=== PATIENT | male | born 1940 | race Caucasian/White ===

== ENCOUNTER → 2016-09-08 | Day surgery (SDC) | payer OTHER ==
[~2016-09-08] VITALS: Ht 167.6 cm; Wt 59.8 kg
[~2016-09-08] MED LIST: BACL10TA PO; BUPIVACAINE/EPINEPHRINE 0.25% PF 30 ML VIAL INFIL ONE; CALC667T PO; DO NOT ADM ANY ANTICOAGULANT DRUGS XX PRN; HEPARIN SODIUM - SQ 10,000 UNITS/ML VIAL OTHER ONE; INSULIN HUMAN REGULAR 1,000 UNITS/10 ML VIAL SQ PRN; JANT2TAB PO; LACTATED RINGER'S 1000 ML IV SCH; METO25TA6 PO; METOPROLOL TARTRATE 25 MG TAB PO PRN; ONDANSETRON HCL 4 MG/2 ML VIAL IV PUSH ONE; PRED20 PO; PROPOFOL 200 MG/20 ML AMP IV ONE; ROPIVACAINE 0.5% PF INJ 30 ML VIAL NB ONE; SODI650T PO; SODIUM CHLORID 0.9% 500 ML IV SCH; VITA100036 PO; ceFAZolin 1,000 MG/NS 100 ML IV SCH; fentaNYL CITRATE 250 MCG/5 ML AMP ONE
[2016-09-08 10:35] VITALS: BP 142/87; PULSE 74; RESP 20; TEMP 97.6; O2SAT 96
[2016-09-08 10:40] LABS: AUTOMATED NEUTROPHIL # 9.8 TH/MM3 (1.8-7.7); BASOPHIL % 0.3 % (0.0-2.0); EOSINOPHIL # 0.1 TH/MM3 (0-0.4); EOSINOPHIL % 0.9 % (0.0-4.0); HEMATOCRIT 42.9 % (39.0-51.0); LYMPH % 23.2 % (9.0-44.0); LYMPHOCYTE # 3.3 TH/MM3 (1.0-4.8); MEAN CELL VOLUME 90.9 FL (80.0-100.0); MEAN CORPUSCULAR HEMOGLOBIN 29.7 PG (27.0-34.0); MEAN CORPUSCULAR HGB CONC 32.7 % (32.0-36.0); MONO % 6.6 % (0.0-8.0); PLATELET COUNT 137 TH/MM3 (150-450); RED BLOOD COUNT 4.71 MIL/MM3 (4.50-5.90); WHITE BLOOD COUNT 14.1 TH/MM3 (4.0-11.0)
[2016-09-08 10:42] LABS: HEMO FLAGS AUTO DIFF
[2016-09-08 10:54] LABS: BICARBONATE 19.8 MEQ/L (21.0-32.0); POTASSIUM 4.9 MEQ/L (3.5-5.1)
[2016-09-08 11:05] LABS: INTERNATIONAL NORMALIZED RATIO 2.4 RATIO; PROTHROMBIN TIME - PATIENT 28.1 SEC (9.8-11.6)
[2016-09-08 11:14] LABS: BANDS 5 % (0-6); METAMYELOCYTES 3 % (0-1); MYELOCYTES 2 % (0-0); NEUTROPHIL # MANUAL DIFF 10.3 TH/MM3 (1.8-7.7); PLATELET ESTIMATE SMEAR LOW (NORMAL); PLATELET MORPHOLOGY NORMAL (NORMAL); POLYS (SEG NEUTROPHILS) 63 % (16-70); WBC DIFF SAMPLE 100
[2016-09-08 11:15] LABS: SCAN/DIFF FINAL DIFF MANUAL
[2016-09-08 16:00] VITALS: BP 118/74; PULSE 65; RESP 16; TEMP 97.6; O2SAT 97
--- NOTE | 2016-09-08 21:26 | MP ---
cc: REINALDO WOODS DATE OF SURGERY: 09/08/2016 PREOPERATIVE DIAGNOSIS: Chronic kidney disease, needs permanent hemodialysis access. POSTOPERATIVE DIAGNOSIS: Chronic kidney disease, needs permanent hemodialysis access. OPERATION: Left brachiocephalic AV fistula creation. SURGEON Reinaldo Woods MD. FEEDER SWITCH[employer]ARD OPERATOR CELESTINE Flower. ANESTHESIA: Local MAC DESCRIPTION OF OPERATIVE PROCEDURE: With the patient in the supine position and under IV sedation, the left upper extremity was prepped with Betadine and draped in a sterile fashion. One gram of Ancef was administered intravenously and following a protocol time-out, the skin and subcutaneous tissue surrounding the proposed incisional area preemptively infiltrated with 0.5% Marcaine with epinephrine. A curvilinear 3 cm incision was performed through which the cephalic vein and brachial artery were circumferentially mobilized. The brachial vein appeared somewhat sclerotic with a small amount of organized thrombus along the anterior venous lumen, presumably related to repeated venipunctures. The vein was ligated distally with 4-0 silk, transected proximal to the ligature, spatulated on end, flushed with heparinized saline and occluded with a Yasargil clip. The artery was occluded proximally and distally with Yasargil clips. A vertical 4 mm arteriotomy was performed along the anterolateral surface. The artery was flushed proximally and distally with heparinized saline. An end-to-side anastomosis was performed between the vein and arteriotomy with continuous 7-0 Prolene. The occluding Yasargil clips were removed reestablishing pulsatile flow within the brachial artery as well as into the cephalic vein. Left radial pulse remained easily palpable, perfusion within the left hand appeared grossly normal. Strict hemostasis was assured. The incision was closed with interrupted subcutaneous 4-0 Monocryl, continuous subcuticular 5-0 Monocryl, reinforced with Steri-Strips and covered with sterile gauze. Instrument, needle, sponge count were correct x2. No operative complications. The patient returned to the recovery room in stable condition having tolerated procedure well. MD ROLAND Reed/[place] /5:53 PM /9:13 PM
--- NOTE | 2016-09-08 23:32 | EKG ---
Date Performed: 09/08/2016 Time Performed: 10:29:46 PTAGE: 75 years EKG: Sinus rhythm LEFT ANTERIOR FASCICULAR BLOCK ABNORMAL ECG NO PREVIOUS TRACING DOCTOR: Pino Peck Interpretating Date/Time 09/08/2016 23:32:21
== END | disposition home or self-care (01) ==
LOC: HSDC 09:45
PROVIDERS: ATTEND Surgery Vascular Surgery
DX: N18.6 End stage renal disease (principal); I12.0 Hypertensive chronic kidney disease with stage 5 chronic kidney disease or end stage renal disease; I48.91 Unspecified atrial fibrillation; J44.9 Chronic obstructive pulmonary disease, unspecified; E78.5 Hyperlipidemia, unspecified; I25.10 Atherosclerotic heart disease of native coronary artery without angina pectoris; Z99.2 Dependence on renal dialysis
CPT/HCPCS: 01844; 36415; 36818; 64415; 80048; 85007; 85027; 85610; 93005; J0690; J1644; J2405; J2795; J3010; J7040

== ENCOUNTER → 2016-10-13 | Day surgery (SDC) | payer OTHER ==
[~2016-10-13] VITALS: Ht 167.6 cm; Wt 61.0 kg
[~2016-10-13] MED LIST changes: -BUPIVACAINE/EPINEPHRINE 0.25% PF 30 ML VIAL INFIL ONE; +BUPIVACAINE/EPINEPHRINE 0.5% 50 ML VIAL ONE; -DO NOT ADM ANY ANTICOAGULANT DRUGS XX PRN; +HEPARIN SODIUM - IV 10,000 UNITS/10 ML VIAL ONE; +HEPARIN SODIUM - SQ 10,000 UNITS/ML VIAL ONE; -HEPARIN SODIUM - SQ 10,000 UNITS/ML VIAL OTHER ONE; +KETAMINE HCL 500 MG/5 ML VIAL ONE; +MIDAZOLAM HCL 2 MG/2 ML VIAL ONE; -ONDANSETRON HCL 4 MG/2 ML VIAL IV PUSH ONE; +PROTAMINE SULFATE 50 MG/5 ML VIAL ONE; -ROPIVACAINE 0.5% PF INJ 30 ML VIAL NB ONE; -fentaNYL CITRATE 250 MCG/5 ML AMP ONE
[2016-10-13 07:01] VITALS: BP 131/84; PULSE 79; RESP 20; TEMP 97.4; O2SAT 95
[2016-10-13 07:06] LABS: AUTOMATED NEUTROPHIL # 10.8 TH/MM3 (1.8-7.7); BASOPHIL # 0.1 TH/MM3 (0-0.2); BASOPHIL % 0.5 % (0.0-2.0); EOSINOPHIL # 0.1 TH/MM3 (0-0.4); EOSINOPHIL % 0.8 % (0.0-4.0); HEMATOCRIT 42.5 % (39.0-51.0); LYMPH % 15.1 % (9.0-44.0); LYMPHOCYTE # 2.1 TH/MM3 (1.0-4.8); MEAN CELL VOLUME 92.7 FL (80.0-100.0); MEAN CORPUSCULAR HEMOGLOBIN 30.7 PG (27.0-34.0); MEAN CORPUSCULAR HGB CONC 33.1 % (32.0-36.0); MONO % 5.3 % (0.0-8.0); NEUT % 78.3 % (16.0-70.0); PLATELET COUNT 174 TH/MM3 (150-450); RED BLOOD COUNT 4.59 MIL/MM3 (4.50-5.90); RED CELL DISTRIBUTION WIDTH 17.5 % (11.6-17.2); WHITE BLOOD COUNT 13.7 TH/MM3 (4.0-11.0)
[2016-10-13 07:08] LABS: HEMO FLAGS AUTO DIFF
[2016-10-13 07:34] LABS: BICARBONATE 25.4 MEQ/L (21.0-32.0); POTASSIUM 4.2 MEQ/L (3.5-5.1)
[2016-10-13 07:59] LABS: BANDS 7 % (0-6); CORRECTED NUCLEATED RBC 1 /100 WBC (0-0); EOSINOPHILS 2 % (0-4); METAMYELOCYTES 1 % (0-1); MYELOCYTES 4 % (0-0); NEUTROPHIL # MANUAL DIFF 10.4 TH/MM3 (1.8-7.7); PLATELET ESTIMATE SMEAR NORMAL (NORMAL); PLATELET MORPHOLOGY NORMAL (NORMAL); POLYS (SEG NEUTROPHILS) 64 % (16-70); SCAN/DIFF FINAL DIFF MANUAL; WBC DIFF SAMPLE 100
[2016-10-13 11:06] VITALS: BP 117/70; PULSE 76; RESP 20; TEMP 97.4; O2SAT 93
--- NOTE | 2016-10-14 09:16 | MP ---
cc: REINALDO WOODS M.D. 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 OPERATIVE PROCEDURE Left brachial-brachial AV graft placement. SURGEON Reinaldo Woods MD AIX ARCHITECT CELESTINE Flower ANESTHESIA Local MAC. DESCRIPTION OF THE OPERATIVE PROCEDURE With the patient in the supine position the left arm was prepped with Betadine and draped in a sterile fashion. IV sedation was induced, one gram of Ancef administered intravenously, and following a protocol timeout the skin and subcutaneous tissue surrounding the proposed incisional areas preemptively infiltrated with 0.5% Marcaine with epinephrine. A vertical 2 cm incision was performed distal to the axilla through which the brachial vein was circumferentially mobilized. The brachial artery to cephalic vein anastomosis incision was incised and dissection continued sharply through the underlying sclerotic tissue. The brachial artery was circumferentially mobilized proximal and distal to the cephalic vein anastomosis and the arterialized cephalic vein mobilized several centimeters proximally. A 2 cm segment of the vein anastomosed to the brachial artery was patent and dilated to approximately 6 mm in diameter. A few centimeters proximal to the arterial anastomosis, the vein was severely, diffusely strictured as far proximally as could be visualized within the incision. The brachial vein was occluded proximally and distally with double loop vessel loops. A vertical 2 cm venotomy was performed. The vein was flushed proximally with heparinized saline. A 6 mm CenterFlex PTFE graft was spatulated on end and anastomosed end-to-side to the venotomy with continuous 6-0 Prolene. The graft was tunneled subcutaneously in a loop-shaped fashion along the medial aspect of the left arm. The brachial artery was occluded proximally and distally with Yasargil clips. The existing arterialized cephalic vein attached to the brachial artery was vertically incised. The graft was spatulated on end and anastomosed end-to-side to the venotomy with continuous 6-0 Prolene. The occluding double-loop vessel loops were removed reestablishing pulsatile flow within the brachial artery as well as into the graft. Strict hemostasis was achieved. Normal perfusion within the left hand was confirmed. Both incisions were closed with continuous subcutaneous 4-0 Monocryl, continuous subcuticular 5-0 Monocryl, reinforced with Steri-Strips and covered with sterile gauze. Instrument, needle, sponge count correct x2. No operative complications. The patient returned to the recovery room in stable condition having tolerated the procedure well. MD ROLAND Reed/[place] /6:17 PM /9:06 AM
== END | disposition home or self-care (01) ==
LOC: HSDC 06:10
PROVIDERS: ATTEND Surgery Vascular Surgery
DX: I87.1 Compression of vein (principal); T82.898A Other specified complication of vascular prosthetic devices, implants and grafts, initial encounter; N18.6 End stage renal disease; I12.0 Hypertensive chronic kidney disease with stage 5 chronic kidney disease or end stage renal disease; I48.91 Unspecified atrial fibrillation; Z99.2 Dependence on renal dialysis
CPT/HCPCS: 01844; 36830; 80048; 85007; 85027; C1768; J0690; J1644; J2250; J3010; J7120; J2720